=== PATIENT | female | born 1990 | race Two or more races ===

== ENCOUNTER 2017-10-10 06:23 | Emergency (ER) | payer OTHER ==
[~2017-10-10] VITALS: Ht 160 cm; Wt 83.9 kg
[2017-10-10 06:30] VITALS: Ht 160 cm; Wt 83.9 kg
[2017-10-10 07:50] LABS: BASOPHIL % 0.4 % (0-2); PLATELET COUNT 204 x10^3mcL (130-400); RED CELL DISTRIBUTION WIDTH 13.4 % (11.5-14.5)
[2017-10-10 07:55] LABS: CALCIUM 8.8 mg/dL (8.5-10.1); CARBON DIOXIDE 28.4 mmol/L (21-32); CHLORIDE SERUM 102 mmol/L (98-107); CREATININE SERUM 0.7 mg/dL (0.6-1.0); GFR1 > 60 mL/min; GLUCOSE SERUM 106 mg/dL (74-106); POTASSIUM SERUM 3.9 mmol/L (3.5-5.1); SODIUM SERUM 140 mmol/L (136-145)
[2017-10-10 07:59] LABS: ALBUMIN 4.2 g/dL (3.4-5.0); ALKALINE PHOSPHATASE 68 U/L (46-116); ALT/SGPT 45 U/L (14-59); AST/SGOT 28 U/L (15-37); BILIRUBIN TOTAL 0.4 mg/dL (0.20-1.00); LIPASE 252 IU/L (73-393); TOTAL PROTEIN, SERUM 7.4 g/dL (6.4-8.2)
[2017-10-10 10:37] VITALS: BP 112/54
== END 2017-10-10 10:35 | disposition home or self-care (01) ==
LOC: ED 06:23
PROVIDERS: Emergency Medicine
DX: N39.0 Urinary tract infection, site not specified (principal); Z88.8 Allergy status to other drugs, medicaments and biological substances
CPT/HCPCS: J2270; J2405; J7030

== ENCOUNTER 2017-11-06 08:05 | Inpatient (IN) | payer OTHER ==
[~2017-11-06] VITALS: Ht 160 cm; Wt 83.1 kg
[2017-11-06 08:12] VITALS: Ht 160 cm; Wt 83.1 kg
[2017-11-06 08:50] LABS: microscopic required? YES; urine erythrocyte NEGATIVE (NEGATIVE)
[2017-11-06 08:56] LABS: BASOPHIL % 0.3 % (0-2); PLATELET COUNT 223 x10^3mcL (130-400); RED CELL DISTRIBUTION WIDTH 14.3 % (11.5-14.5)
[2017-11-06 09:27] LABS: CALCIUM 9.1 mg/dL (8.5-10.1); CARBON DIOXIDE 24.6 mmol/L (21-32); CHLORIDE SERUM 102 mmol/L (98-107); CREATININE SERUM 0.7 mg/dL (0.6-1.0); GFR1 > 60 mL/min; GLUCOSE SERUM 114 mg/dL (74-106); POTASSIUM SERUM 3.5 mmol/L (3.5-5.1); SODIUM SERUM 136 mmol/L (136-145)
[2017-11-06 09:30] LABS: ALBUMIN 4.2 g/dL (3.4-5.0); ALKALINE PHOSPHATASE 67 U/L (46-116); ALT/SGPT 37 U/L (14-59); AMYLASE 84 U/L (25-115); AST/SGOT 17 U/L (15-37); BILIRUBIN TOTAL 0.4 mg/dL (0.20-1.00); LIPASE 990 IU/L (73-393); TOTAL PROTEIN, SERUM 7.6 g/dL (6.4-8.2)
[2017-11-06] MEDS ORDERED: LEXAPRO5 M1 PO (10:59)
[2017-11-06 14:33] VITALS: BP 120/70
[2017-11-06 19:58] VITALS: BP 105/61
[2017-11-07 06:13] VITALS: BP 120/66
[2017-11-07 06:41] LABS: ALBUMIN 3.5 g/dL (3.4-5.0); ALKALINE PHOSPHATASE 66 U/L (46-116); ALT/SGPT 40 U/L (14-59); AST/SGOT 24 U/L (15-37); BILIRUBIN TOTAL 0.4 mg/dL (0.20-1.00); CALCIUM 8.2 mg/dL (8.5-10.1); CARBON DIOXIDE 26.4 mmol/L (21-32); CHLORIDE SERUM 104 mmol/L (98-107); CHOLESTEROL 167 mg/dL (<200); CREATININE SERUM 0.7 mg/dL (0.6-1.0); GFR1 > 60 mL/min; GLUCOSE SERUM 102 mg/dL (74-106); LIPASE 215 IU/L (73-393); POTASSIUM SERUM 3.3 mmol/L (3.5-5.1); SODIUM SERUM 140 mmol/L (136-145); TOTAL PROTEIN, SERUM 6.5 g/dL (6.4-8.2); TRIGLYCERIDES 155 mg/dL (<150)
[2017-11-07 06:42] LABS: CHOLESTEROL/HDL RATIO 4.9; HDL CHOLESTEROL 34 mg/dL (40-60)
[2017-11-07 09:30] VITALS: BP 120/66
[2017-11-07 17:47] VITALS: BP 118/58
[2017-11-07 18:47] VITALS: BP 114/55
[2017-11-07 20:09] VITALS: BP 117/66
[2017-11-08 06:04] VITALS: BP 116/79
[2017-11-08 06:17] LABS: BASOPHIL % 0.4 % (0-2); PLATELET COUNT 191 x10^3mcL (130-400); RED CELL DISTRIBUTION WIDTH 13.9 % (11.5-14.5)
[2017-11-08 06:36] LABS: ALBUMIN 3.6 g/dL (3.4-5.0); ALKALINE PHOSPHATASE 64 U/L (46-116); ALT/SGPT 40 U/L (14-59); AST/SGOT 24 U/L (15-37); BILIRUBIN TOTAL 0.39 mg/dL (0.20-1.00); CALCIUM 8.6 mg/dL (8.5-10.1); CARBON DIOXIDE 28.5 mmol/L (21-32); CHLORIDE SERUM 106 mmol/L (98-107); CREATININE SERUM 0.7 mg/dL (0.6-1.0); GFR1 > 60 mL/min; GLUCOSE SERUM 103 mg/dL (74-106); POTASSIUM SERUM 3.8 mmol/L (3.5-5.1); SODIUM SERUM 145 mmol/L (136-145); TOTAL PROTEIN, SERUM 6.5 g/dL (6.4-8.2)
[2017-11-08 10:00] VITALS: BP 104/72
[2017-11-08 10:45] VITALS: BP 116/79
== END 2017-11-08 11:27 | disposition home or self-care (01) | DRG 282 ==
LOC: ED 08:05 → MU 11:04
PROVIDERS: Emergency Medicine; Internal Medicine; Internal Medicine Pulmonary Disease
DX: K85.90 Acute pancreatitis without necrosis or infection, unspecified (principal); E78.2 Mixed hyperlipidemia; E66.9 Obesity, unspecified; F41.9 Anxiety disorder, unspecified; F43.10 Post-traumatic stress disorder, unspecified; Z90.49 Acquired absence of other specified parts of digestive tract; Z98.891 History of uterine scar from previous surgery; Z68.32 Body mass index [BMI] 32.0-32.9, adult
CPT/HCPCS: 83880; J0500; J0696; J2270; J3010; J3490; J7030; Q0162

== ENCOUNTER 2017-11-22 07:32 | Inpatient (IN) | payer OTHER ==
[~2017-11-22] VITALS: Ht 160 cm; Wt 81.8 kg
[~2017-11-22 07:32] MED LIST: LEXAPRO5 M1 PO
[2017-11-22 07:38] VITALS: Ht 160 cm; Wt 81.8 kg
[2017-11-22 08:11] LABS: UA SPECIFIC GRAVITY 1.025 (1.005-1.035); microscopic required? YES; urine erythrocyte NEGATIVE (NEGATIVE)
[2017-11-22 08:21] LABS: BASOPHIL % 0.3 % (0-2); PLATELET COUNT 238 x10^3mcL (130-400); RED CELL DISTRIBUTION WIDTH 14.4 % (11.5-14.5)
[2017-11-22 08:40] LABS: CARBON DIOXIDE 26.6 mmol/L (21-32); CHLORIDE SERUM 104 mmol/L (98-107); CREATININE SERUM 0.7 mg/dL (0.6-1.0); GFR1 > 60 mL/min; GLUCOSE SERUM 110 mg/dL (74-106); POTASSIUM SERUM 3.8 mmol/L (3.5-5.1); SODIUM SERUM 140 mmol/L (136-145)
[2017-11-22 08:45] LABS: ALKALINE PHOSPHATASE 63 U/L (46-116); ALT/SGPT 22 U/L (14-59); AMYLASE 59 U/L (25-115); AST/SGOT 14 U/L (15-37); BILIRUBIN TOTAL 0.23 mg/dL (0.20-1.00); LIPASE 655 IU/L (73-393); TOTAL PROTEIN, SERUM 7.4 g/dL (6.4-8.2)
[2017-11-22 11:14] VITALS: BP 95/52
[2017-11-22 17:51] VITALS: BP 100/56
[2017-11-22 20:56] VITALS: BP 121/79
[2017-11-23 06:01] VITALS: BP 108/59
[2017-11-23 06:18] LABS: BASOPHIL % 0.4 % (0-2); PLATELET COUNT 209 x10^3mcL (130-400); RED CELL DISTRIBUTION WIDTH 14.3 % (11.5-14.5)
[2017-11-23 06:43] LABS: AMYLASE 31 U/L (25-115); CARBON DIOXIDE 26.3 mmol/L (21-32); CHLORIDE SERUM 103 mmol/L (98-107); CREATININE SERUM 0.7 mg/dL (0.6-1.0); GFR1 > 60 mL/min; GLUCOSE SERUM 89 mg/dL (74-106); LIPASE 79 IU/L (73-393); POTASSIUM SERUM 3.4 mmol/L (3.5-5.1); SODIUM SERUM 138 mmol/L (136-145)
[2017-11-23 08:49] VITALS: BP 113/69
[2017-11-23 13:56] VITALS: BP 98/54
[2017-11-23 15:30] VITALS: BP 98/54
== END 2017-11-23 16:18 | disposition home or self-care (01) | DRG 282 ==
LOC: ED 07:32 → MU 09:05
PROVIDERS: Emergency Medicine; Internal Medicine Pulmonary Disease
DX: K85.90 Acute pancreatitis without necrosis or infection, unspecified (principal); F43.10 Post-traumatic stress disorder, unspecified; Z90.49 Acquired absence of other specified parts of digestive tract; G89.4 Chronic pain syndrome; Z76.5 Malingerer [conscious simulation]
CPT/HCPCS: C9113; J0500; J0696; J2270; J2405; J3490; J7030; Q0092

== ENCOUNTER 2017-12-30 04:56 | Emergency (ER) | payer OTHER ==
[~2017-12-30] VITALS: Ht 160 cm; Wt 80.0 kg
[2017-12-30 05:44] LABS: BASOPHIL % 0.2 % (0-2); CALCIUM 8.7 mg/dL (8.5-10.1); CARBON DIOXIDE 27.7 mmol/L (21-32); CHLORIDE SERUM 106 mmol/L (98-107); CREATININE SERUM 0.6 mg/dL (0.6-1.0); GFR1 > 60 mL/min; GLUCOSE SERUM 99 mg/dL (74-106); PLATELET COUNT 215 x10^3mcL (130-400); POTASSIUM SERUM 3.9 mmol/L (3.5-5.1); SODIUM SERUM 141 mmol/L (136-145)
[2017-12-30 05:47] LABS: RED CELL DISTRIBUTION WIDTH 15.2 % (11.5-14.5)
[2017-12-30 05:49] LABS: ALBUMIN 3.8 g/dL (3.4-5.0); ALKALINE PHOSPHATASE 67 U/L (46-116); ALT/SGPT 28 U/L (14-59); AST/SGOT 15 U/L (15-37); BILIRUBIN TOTAL 0.15 mg/dL (0.20-1.00); LIPASE 236 IU/L (73-393); TOTAL PROTEIN, SERUM 6.9 g/dL (6.4-8.2)
[2017-12-30 06:13] VITALS: BP 115/70
== END 2017-12-30 06:25 | disposition home or self-care (01) ==
LOC: ED 04:56
PROVIDERS: Emergency Medicine
DX: K29.00 Acute gastritis without bleeding (principal); N39.0 Urinary tract infection, site not specified; Z88.8 Allergy status to other drugs, medicaments and biological substances
CPT/HCPCS: J2270; J2405

== ENCOUNTER 2018-01-20 22:50 | Emergency (ER) | payer OTHER ==
[~2018-01-20] VITALS: Ht 160 cm; Wt 80.3 kg
[2018-01-20 22:56] VITALS: Ht 160 cm; Wt 80.3 kg
[2018-01-21 00:38] LABS: CALCIUM 8.7 mg/dL (8.5-10.1); CARBON DIOXIDE 25.9 mmol/L (21-32); CHLORIDE SERUM 106 mmol/L (98-107); CREATININE SERUM 0.6 mg/dL (0.6-1.0); GFR1 > 60 mL/min; GLUCOSE SERUM 96 mg/dL (74-106); POTASSIUM SERUM 3.6 mmol/L (3.5-5.1); SODIUM SERUM 140 mmol/L (136-145)
[2018-01-21 00:43] LABS: ALBUMIN 3.9 g/dL (3.4-5.0); ALKALINE PHOSPHATASE 63 U/L (46-116); ALT/SGPT 20 U/L (14-59); AMYLASE 39 U/L (25-115); AST/SGOT 13 U/L (15-37); BASOPHIL % 0.2 % (0-2); BILIRUBIN TOTAL 0.2 mg/dL (0.20-1.00); LIPASE 226 IU/L (73-393); PLATELET COUNT 221 x10^3mcL (130-400); TOTAL PROTEIN, SERUM 6.8 g/dL (6.4-8.2)
[2018-01-21 00:47] LABS: RED CELL DISTRIBUTION WIDTH 14.7 % (11.5-14.5)
[2018-01-21 01:08] LABS: AMPHETAMINE QUAL UR NONE DETECTED (NEG <=1000)
[2018-01-21 01:56] VITALS: BP 118/70
== END 2018-01-21 01:56 | disposition home or self-care (01) ==
LOC: ED 22:50
PROVIDERS: Emergency Medicine
DX: R10.13 Epigastric pain (principal); R10.12 Left upper quadrant pain; Z88.6 Allergy status to analgesic agent
CPT/HCPCS: 36415; 83880; J2270; Q0162

== ENCOUNTER 2018-02-10 01:47 | Emergency (ER) | payer OTHER ==
[~2018-02-10] VITALS: Ht 160 cm; Wt 78.5 kg
[2018-02-10 01:55] VITALS: Ht 160 cm; Wt 78.5 kg
[2018-02-10 03:01] LABS: BASOPHIL % 0.4 % (0-2); PLATELET COUNT 212 x10^3mcL (130-400); RED CELL DISTRIBUTION WIDTH 13.5 % (11.5-14.5)
[2018-02-10 03:03] LABS: CHLORIDE SERUM 105 mmol/L (98-107); CREATININE SERUM 0.8 mg/dL (0.6-1.0); GFR1 > 60 mL/min; GLUCOSE SERUM 101 mg/dL (74-106); POTASSIUM SERUM 3.6 mmol/L (3.5-5.1); SODIUM SERUM 141 mmol/L (136-145)
[2018-02-10 03:07] LABS: ALKALINE PHOSPHATASE 67 U/L (46-116); ALT/SGPT 23 U/L (14-59); AMYLASE 56 U/L (25-115); AST/SGOT 15 U/L (15-37); BILIRUBIN TOTAL 0.23 mg/dL (0.20-1.00); LIPASE 565 IU/L (73-393); TOTAL PROTEIN, SERUM 7.1 g/dL (6.4-8.2)
[2018-02-10 05:23] VITALS: BP 122/89
== END 2018-02-10 05:23 | disposition home or self-care (01) ==
LOC: ED 01:47
PROVIDERS: Emergency Medicine
DX: K85.90 Acute pancreatitis without necrosis or infection, unspecified (principal); N39.0 Urinary tract infection, site not specified; K21.9 Gastro-esophageal reflux disease without esophagitis; F32.9 Major depressive disorder, single episode, unspecified; Z90.49 Acquired absence of other specified parts of digestive tract
CPT/HCPCS: 83880; J2405; J2765; J3010

== ENCOUNTER 2018-02-25 03:13 | Emergency (ER) | payer OTHER ==
[~2018-02-25] VITALS: Ht 160 cm; Wt 77.6 kg
[2018-02-25 05:47] VITALS: BP 127/77
== END 2018-02-25 05:47 | disposition home or self-care (01) ==
LOC: ED 03:13
DX: G89.29 Other chronic pain (principal); R10.12 Left upper quadrant pain; Z88.6 Allergy status to analgesic agent; Z88.8 Allergy status to other drugs, medicaments and biological substances; Z90.49 Acquired absence of other specified parts of digestive tract
CPT/HCPCS: J2405; J3490

== ENCOUNTER 2018-03-17 02:59 | Emergency (ER) | payer OTHER ==
[~2018-03-17] VITALS: Ht 160 cm; Wt 76.2 kg
[2018-03-17 03:09] VITALS: Ht 160 cm; Wt 76.2 kg
[2018-03-17 04:26] LABS: BASOPHIL % 0.4 % (0-2); PLATELET COUNT 197 x10^3mcL (130-400); RED CELL DISTRIBUTION WIDTH 13.4 % (11.5-14.5)
[2018-03-17 04:41] LABS: CALCIUM 8.2 mg/dL (8.5-10.1); CARBON DIOXIDE 27.8 mmol/L (21-32); CHLORIDE SERUM 108 mmol/L (98-107); CREATININE SERUM 0.6 mg/dL (0.6-1.0); GFR1 > 60 mL/min; GLUCOSE SERUM 101 mg/dL (74-106); POTASSIUM SERUM 3.9 mmol/L (3.5-5.1); SODIUM SERUM 141 mmol/L (136-145)
[2018-03-17 04:45] LABS: ALBUMIN 3.8 g/dL (3.4-5.0); ALKALINE PHOSPHATASE 66 U/L (46-116); ALT/SGPT 18 U/L (14-59); AST/SGOT 14 U/L (15-37); BILIRUBIN TOTAL 0.2 mg/dL (0.20-1.00); LIPASE 600 IU/L (73-393); TOTAL PROTEIN, SERUM 6.7 g/dL (6.4-8.2)
[2018-03-17 06:36] VITALS: BP 137/85
== END 2018-03-17 06:37 | disposition home or self-care (01) ==
LOC: ED 02:59
PROVIDERS: Emergency Medicine
DX: K85.90 Acute pancreatitis without necrosis or infection, unspecified (principal); Z87.19 Personal history of other diseases of the digestive system
CPT/HCPCS: J2270; Q0162

== ENCOUNTER 2018-10-28 00:32 | Inpatient (IN) | payer OTHER ==
[~2018-10-28] VITALS: Ht 160 cm; Wt 75.7 kg
[2018-10-28 00:38] VITALS: Ht 160 cm; Wt 75.7 kg
--- NOTE | 2018-10-28 01:01 | NUR ---
PT PRESENTS TO ED WITH C/O ABDOMINAL PAIN, NAUSEA, AND VOMITING. PER PT, SYMPTOMS BEGAN MONDAY AND HAVE BECOME GRADUALLY WORSE OVER THE LAST FEW DAYS. AT THE BEGINNING SHE SAID THE PAIN WAS INTERMITTANT BUT IS NOW CONSTANT. PT HAS A HX OF PACREATITIS WHICH SHE STATES "THIS FEELS ALOT LIKE THAT". PT ALSO STATES TO A HX OF KIDNEY STONES. PT IS BEING SEEN BY A GI SPECIALIST AT [facility] AND WAS SEEN IN [facility] FOR EVALUATION AND MRI PER PT SHE IS WAITING FOR RESULTS FROM HER TESTING. PT SITTING IN BED AND APPEARS TO BE IN MILD DISTRESS FROM PAIN. PT AOX4, RESP EVEN AND UNLABORED.
[2018-10-28 01:26] LABS: microscopic required? YES; urine erythrocyte NEGATIVE (NEGATIVE)
[2018-10-28 01:28] LABS: BASOPHIL % 0.5 % (0-2); PLATELET COUNT 226 x10^3mcL (130-400); RED CELL DISTRIBUTION WIDTH 13.9 % (11.5-14.5)
[2018-10-28 01:57] LABS: CALCIUM 8.9 mg/dL (8.5-10.1); CHLORIDE SERUM 104 mmol/L (98-107); CREATININE SERUM 0.6 mg/dL (0.6-1.0); GFR1 > 60 mL/min; GLUCOSE SERUM 110 mg/dL (74-106); POTASSIUM SERUM 3.9 mmol/L (3.5-5.1); SODIUM SERUM 140 mmol/L (136-145)
--- NOTE | 2018-10-28 01:59 | NUR ---
PT STATES THAT THE PAIN MEDICATION BROUGHT HER PAIN FROM AN 8/10 TO A 6/10 BUT IS STILL NOTED IN MILD DISTRESS FROM PAIN. PT STATES THAT SHE IS NO LONGER NAUSEOUS. DR JETER AWARE.
[2018-10-28 03:02] LABS: ALKALINE PHOSPHATASE 67 U/L (46-116); ALT/SGPT 9 U/L (14-59); AMYLASE 89 U/L (25-115); AST/SGOT 15 U/L (15-37); BILIRUBIN TOTAL 0.35 mg/dL (0.20-1.00); LIPASE 790 IU/L (73-393); TOTAL PROTEIN, SERUM 7.7 g/dL (6.4-8.2)
--- NOTE | 2018-10-28 03:09 | NUR ---
PT MEDICATED PER EMAR. PT OFF FLOOR FOR CT AT THIS TIME.
[2018-10-28] MEDS ORDERED: GOOD SENSE OMEP20 MG PO (03:21)
[2018-10-28] MEDS ORDERED: BEN20 PO (03:21)
[2018-10-28] MEDS ORDERED: ZOF4 PO (03:21)
--- NOTE | 2018-10-28 05:14 | NUR ---
REPORT CALLED TO NICO JOHNSON TO ASSUME PT CARE.
[2018-10-28 05:24] LABS: PHOSPHOROUS 4.2 mg/dL (2.5-4.9)
--- NOTE | 2018-10-28 05:50 | NUR ---
ADMITTED PT FROM ER WITH C/O ABDOMINAL PAIN THAT STARTED MONDAY NIGHT.OR 8/10 TO SHARP/STABBING PAIN.NAUSEATED BUT NO VOMITING NOTED.ABDOMEN SOFT AND NON-DISTENDED.PAIN STARTS FROM EPIGASTRIC AREA THAT RADIATED TO HER L SIDE AND TO HER BACK.NORCO 5/325 MG PO AND ZOFRAN 4 MG IVP ADMINISTERED.COMFORT MEASURES RENDERED.ADMISSION CARE DONE.ORIENTATION TO ROOM AND BUTTONS PROVIDED.WILL CONTINUE TO MONITOR.
--- NOTE | 2018-10-28 05:51 | NUR ---
PT TRANSFERRED TO RM 226B BY WHEELCHAIR BY [facility] EMT. PT AOX4, RESP EVEN AND UNLABORED, NO ACUTE DISTRESS NOTED. PT ACCEPTED BY NICO JOHNSON TO ASSUME PT CARE.
[2018-10-28 06:14] VITALS: BP 120/72
--- NOTE | 2018-10-28 07:16 | NUR ---
RECEIVED PATIENT AWAKE/ALERT IN BED, NO DISTRESS NOTED. REPORT PAIN IS 7/10 ABDOMEN AFTER MEDICATED. M/S. IV TO RAC INFUSING WELL, NO REDNESS OR SWELLING NOTED, CALL LIGHT IN REACH.
--- NOTE | 2018-10-28 09:21 | NUR ---
PATIENT RESTING IN BED CALM, MEDICATED FOR 7/10 ABDOMEN PAIN WITH DILAUDID IVP TO RAC IV PATENT, NEEDS MET. CONT TO MONITOR. DANILO LIGHT IN REACH.
[2018-10-28 09:32] VITALS: BP 120/67
--- NOTE | 2018-10-28 11:48 | NUR ---
PATIENT AWAKE WATCHING TV AT THIS TIME, REPORT PAIN IS TOLERABLE. NEEDS MET. CALL LIGHT IN REACH.
--- NOTE | 2018-10-28 14:24 | NUR ---
PATIENT RESTING IN BED NO DISTRESS NOTED, CALM. MEDICATED FOR 8/10 ABDOMEN PAIN AND NAUSEA WITH DILAUDID IV P AND ZOFRAN IVP, IV TO RAC PATENT, NO REDNESS OR SWELLING NOTED. CALL LIGHT IN REACH.
--- NOTE | 2018-10-28 14:59 | NUR ---
DR. SANCHEZ IN THE ROOM TALK TO PATIENT AND DISCUSS POC, PAIN/NAUSEA MANAGEMENT. WILL ADV DIET TOMORROW. REPORT PAIN IS RELIEVED. CONT TO MONITOR.
[2018-10-28 16:55] VITALS: BP 106/56
--- NOTE | 2018-10-28 18:37 | NUR ---
PATIENT LAYING IN BED NO DISTRESS NOTED. MEDICATED FOR PAIN 7/10 ABDOMEN AND NAUSEA WITH DILAUDID IVP AND ZOFRAN IVP. CONT TO MONITOR.
[2018-10-28 19:15] VITALS: BP 111/65
--- NOTE | 2018-10-28 19:15 | NUR ---
RECEIVED PT AWAKE ALERT AND VERBALLY RESPONSIVE.NAUSEATED BUT NO VOMITNG NOTED.VERBALIZED RELIEF FROM PAIN MEDS GIVEN EARLIER.VT 5/10 TO STABBING/SHARP PAIN.PAIN MGT PLAN DISCUSSED WITH PT AND AGREEABLE.WILL CONTINUE TO MONITOR.
--- NOTE | 2018-10-29 04:50 | NUR ---
PT SLEPT WELL ALL NIGHT.MEDICATED WITH DILAUDID 1 MG IVP X2 FOR ABDOMINAL PAIN AND ZOFRAN 4 MG IVP X2 FOR NAUSEA WITH GOOD RESULT.REMAINS NPO AT THIS TIME.ALL NEEDS MET.WILL CONTINUE TO MONITOR.
[2018-10-29 05:12] VITALS: BP 104/49
[2018-10-29 07:09] LABS: ALBUMIN 3.4 g/dL (3.4-5.0); ALKALINE PHOSPHATASE 66 U/L (46-116); ALT/SGPT 29 U/L (14-59); AST/SGOT 28 U/L (15-37); BILIRUBIN TOTAL 0.7 mg/dL (0.20-1.00); CALCIUM 8.3 mg/dL (8.5-10.1); CARBON DIOXIDE 25.5 mmol/L (21-32); CHLORIDE SERUM 102 mmol/L (98-107); CREATININE SERUM 0.6 mg/dL (0.6-1.0); GFR1 > 60 mL/min; GLUCOSE SERUM 73 mg/dL (74-106); LIPASE 123 IU/L (73-393); POTASSIUM SERUM 4.1 mmol/L (3.5-5.1); SODIUM SERUM 136 mmol/L (136-145); TOTAL PROTEIN, SERUM 6.6 g/dL (6.4-8.2)
[2018-10-29 07:33] LABS: BASOPHIL % 0.3 % (0-2); PLATELET COUNT 165 x10^3mcL (130-400); RED CELL DISTRIBUTION WIDTH 14.4 % (11.5-14.5)
--- NOTE | 2018-10-29 07:55 | NUR ---
RECEIVED PT IN BED. ASSESSED AND DOCUMENTED. STATED INTTERMITENT LEFT SIDE ABDOMINAL PAIN RADIATED TO LEFT BACK, TOLERABLE THIS TIME AND NO NEED OF PAIN MED PER PT. SAFTEY PRECAUTIONS ARE IN PLACE. WILL MONITOR.
--- NOTE | 2018-10-29 08:42 | NUR ---
PT WAS C/O LEFT SIDE ABD PAIN RADIATE TO LEFT BACK,9/10 AND NAUSEA. MEDICATED PT WITH DILAUDID IV AND ZOFRAN IV. REASSESSED NOW AND PT SAID SHE DOESNOT HAVE NAUSEA OR PAIN NOW. COMFORTABLE.
[2018-10-29 09:58] VITALS: BP 103/47
--- NOTE | 2018-10-29 12:30 | NUR ---
AND SAID OK GIVING CL DIET. PT HAD APPLE JUICE TOLERATING WELL.
--- NOTE | 2018-10-29 14:00 | NUR ---
PT RESTING IN BED COMFORTABLY. DENIES PAIN THIS TIME. NO NAUSEA THIS TIME. INFORMED PT SHE HAS BEEN DISCHARGE. SHE SAID HER RIDE WILL BE HERE AFTER 5PM.
[2018-10-29 17:55] VITALS: BP 102/52
--- NOTE | 2018-10-29 18:15 | NUR ---
PT TOLERATED CL DIET. DENIES ANY PAIN. NO NAUSEA. STABLE.
--- NOTE | 2018-10-29 18:30 | NUR ---
PT'S IS IN THE LOBBY. DISCHARGE INSTRUCTIONS AND PRESCRIPTION GIVEN. PB SIGNED AND SENT WITH PT. IV REMOVED AND DRESSING APPLIED. INSPECTOR PAWNSHOP DETAIL WHEELED PT DOWN TO LOBBY IN STABLE CONDITION. PT DC HOME. PT DENIES ANY PAIN. NO NAUSEA THIS TIME.
[2018-10-29 18:33] VITALS: BP 102/52
== END 2018-10-29 20:12 | disposition home or self-care (01) | DRG 282 ==
LOC: ED 00:32 → MU 00:54
PROVIDERS: Emergency Medicine; Internal Medicine; ADMIT Internal Medicine Pulmonary Disease
DX: K85.90 Acute pancreatitis without necrosis or infection, unspecified (principal); E66.9 Obesity, unspecified; E78.2 Mixed hyperlipidemia; F43.10 Post-traumatic stress disorder, unspecified; N83.202 Unspecified ovarian cyst, left side; Z88.6 Allergy status to analgesic agent
CPT/HCPCS: C9113; J1170; J2405; J3010; J7030; Q0092

== ENCOUNTER 2018-11-01 06:09 | Emergency (ER) | payer OTHER ==
[~2018-11-01] VITALS: Ht 160 cm; Wt 75.8 kg
[~2018-11-01 06:09] MED LIST changes: +BEN20 PO; +GOOD SENSE OMEP20 MG PO; +ZOF4 PO
[2018-11-01 06:28] VITALS: Ht 160 cm; Wt 75.8 kg
[2018-11-01 08:10] VITALS: BP 135/78
== END 2018-11-01 08:10 | disposition home or self-care (01) ==
LOC: ED 06:09
DX: K86.1 Other chronic pancreatitis (principal); Z88.6 Allergy status to analgesic agent
CPT/HCPCS: Q0162

== ENCOUNTER 2018-11-11 06:13 | Emergency (ER) | payer OTHER ==
[~2018-11-11] VITALS: Ht 160 cm; Wt 76.2 kg
[2018-11-11 06:21] VITALS: Ht 160 cm; Wt 76.2 kg
[2018-11-11 07:00] LABS: BASOPHIL % 0.5 % (0-2); PLATELET COUNT 206 x10^3mcL (130-400); RED CELL DISTRIBUTION WIDTH 14.1 % (11.5-14.5)
[2018-11-11 07:18] LABS: CALCIUM 8.6 mg/dL (8.5-10.1); CARBON DIOXIDE 27.1 mmol/L (21-32); CHLORIDE SERUM 105 mmol/L (98-107); CREATININE SERUM 0.7 mg/dL (0.6-1.0); GFR1 > 60 mL/min; GLUCOSE SERUM 100 mg/dL (74-106); POTASSIUM SERUM 4.2 mmol/L (3.5-5.1); SODIUM SERUM 141 mmol/L (136-145)
[2018-11-11 07:19] LABS: ALBUMIN 3.7 g/dL (3.4-5.0); ALKALINE PHOSPHATASE 62 U/L (46-116); ALT/SGPT 21 U/L (14-59); AMYLASE 71 U/L (25-115); AST/SGOT 16 U/L (15-37); BILIRUBIN TOTAL 0.13 mg/dL (0.20-1.00); LIPASE 660 IU/L (73-393); TOTAL PROTEIN, SERUM 7.1 g/dL (6.4-8.2)
[2018-11-11 08:06] VITALS: BP 106/75
== END 2018-11-11 08:06 | disposition home or self-care (01) ==
LOC: ED 06:13
PROVIDERS: Emergency Medicine
DX: K86.1 Other chronic pancreatitis (principal); Z88.6 Allergy status to analgesic agent
CPT/HCPCS: J3010; J7030

== ENCOUNTER 2018-12-02 03:46 | Emergency (ER) | payer OTHER ==
[~2018-12-02] VITALS: Ht 160 cm; Wt 78.3 kg
[2018-12-02 04:58] LABS: UA SPECIFIC GRAVITY 1.015 (1.005-1.035); microscopic required? YES; urine erythrocyte 2+ (NEGATIVE)
[2018-12-02 05:01] LABS: BASOPHIL % 0.5 % (0-2); PLATELET COUNT 225 x10^3mcL (130-400); RED CELL DISTRIBUTION WIDTH 14.3 % (11.5-14.5)
[2018-12-02 05:04] LABS: CALCIUM 8.7 mg/dL (8.5-10.1); CHLORIDE SERUM 102 mmol/L (98-107); CREATININE SERUM 0.8 mg/dL (0.6-1.0); GFR1 > 60 mL/min; GLUCOSE SERUM 111 mg/dL (74-106); SODIUM SERUM 138 mmol/L (136-145)
[2018-12-02 05:08] LABS: ALBUMIN 4.7 g/dL (3.4-5.0); ALKALINE PHOSPHATASE 76 U/L (46-116); ALT/SGPT 34 U/L (14-59); AMYLASE 68 U/L (25-115); AST/SGOT 15 U/L (15-37); BILIRUBIN TOTAL 0.21 mg/dL (0.20-1.00); LIPASE 475 IU/L (73-393)
[2018-12-02 05:10] LABS: TOTAL PROTEIN, SERUM 8.4 g/dL (6.4-8.2)
[2018-12-02 06:08] VITALS: BP 115/77
== END 2018-12-02 06:20 | disposition home or self-care (01) ==
LOC: ED 03:46
PROVIDERS: Emergency Medicine
DX: N12 Tubulo-interstitial nephritis, not specified as acute or chronic (principal); Z88.6 Allergy status to analgesic agent; G89.29 Other chronic pain; Z87.442 Personal history of urinary calculi
CPT/HCPCS: J2270; J2405; J7030

== ENCOUNTER 2018-12-09 02:26 | Emergency (ER) | payer OTHER ==
[~2018-12-09] VITALS: Ht 160 cm; Wt 75.3 kg
[2018-12-09 02:34] VITALS: Ht 160 cm; Wt 75.3 kg
[2018-12-09 03:44] LABS: microscopic required? NO
[2018-12-09 03:50] LABS: urine erythrocyte NEGATIVE (NEGATIVE)
[2018-12-09 04:08] VITALS: BP 119/78
== END 2018-12-09 04:08 | disposition home or self-care (01) ==
LOC: ED 02:26
PROVIDERS: Emergency Medicine
DX: K86.1 Other chronic pancreatitis (principal); Z88.6 Allergy status to analgesic agent; Z87.19 Personal history of other diseases of the digestive system; Z87.442 Personal history of urinary calculi
CPT/HCPCS: Q0162

== ENCOUNTER 2018-12-17 07:39 | Emergency (ER) | payer OTHER ==
[~2018-12-17] VITALS: Ht 160 cm; Wt 75.3 kg
[2018-12-17 07:40] VITALS: Ht 160 cm; Wt 75.3 kg
[2018-12-17 08:27] LABS: BASOPHIL % 0.3 % (0-2); PLATELET COUNT 203 x10^3mcL (130-400); RED CELL DISTRIBUTION WIDTH 14.2 % (11.5-14.5)
[2018-12-17 08:30] LABS: CALCIUM 8.8 mg/dL (8.5-10.1); CARBON DIOXIDE 24.3 mmol/L (21-32); CHLORIDE SERUM 103 mmol/L (98-107); CREATININE SERUM 0.7 mg/dL (0.6-1.0); GFR1 > 60 mL/min; GLUCOSE SERUM 110 mg/dL (74-106); POTASSIUM SERUM 3.9 mmol/L (3.5-5.1); SODIUM SERUM 137 mmol/L (136-145)
[2018-12-17 08:36] LABS: ALBUMIN 4.3 g/dL (3.4-5.0); ALKALINE PHOSPHATASE 58 U/L (46-116); ALT/SGPT 23 U/L (14-59); AMYLASE 31 U/L (25-115); AST/SGOT 15 U/L (15-37); BILIRUBIN TOTAL 0.3 mg/dL (0.20-1.00); LIPASE 125 IU/L (73-393); TOTAL PROTEIN, SERUM 7.8 g/dL (6.4-8.2)
[2018-12-17 09:15] VITALS: BP 107/74
== END 2018-12-17 09:13 | disposition home or self-care (01) ==
LOC: ED 07:39
PROVIDERS: Emergency Medicine
DX: R10.12 Left upper quadrant pain (principal); R10.13 Epigastric pain; Z88.6 Allergy status to analgesic agent; Z87.442 Personal history of urinary calculi
CPT/HCPCS: J3010

== ENCOUNTER 2019-01-11 02:18 | Emergency (ER) | payer OTHER ==
[~2019-01-11] VITALS: Ht 160 cm; Wt 74.4 kg
[2019-01-11 02:20] VITALS: Ht 160 cm; Wt 74.4 kg
[2019-01-11 05:01] VITALS: BP 120/88
== END 2019-01-11 05:01 | disposition home or self-care (01) ==
LOC: ED 02:18
DX: R10.13 Epigastric pain (principal); G89.29 Other chronic pain; Z88.6 Allergy status to analgesic agent; Z88.8 Allergy status to other drugs, medicaments and biological substances
CPT/HCPCS: J2270; J2765